=== PATIENT | female | born 1970 | race Hispanic/Latino ===

== ENCOUNTER → 2018-11-20 | Outpatient (CLI) | payer OTHER ==
--- NOTE | 2018-11-20 17:44 | Diagnostic Imaging Report ---
Frontal and lateral views of the chest. HISTORY: Dyspnea COMPARISON: None available. DISCUSSION: Lungs: Mild prominence of the peribronchial interstitial markings. No evidence of a consolidative pneumonia or pulmonary alveolar edema. Pleura: No pleural effusion or pneumothorax. Heart and mediastinum: The cardiomediastinal silhouette appears unremarkable. Bones and soft tissues: Appear unremarkable. IMPRESSION: 1. Findings which can be seen in the setting of a nonspecific bronchitis. 2. No consolidative pneumonia. Signed by: Dr. Salvador Ibanez D.O., M.M.M. on 11/20/2018 5:41 PM
== END ==
LOC: RAD 16:55
PROVIDERS: ATTEND Family Medicine
DX: R06.00 Dyspnea, unspecified (principal)
CPT/HCPCS: 71046

== ENCOUNTER → 2019-06-11 | Outpatient (CLI) | payer OTHER ==
--- NOTE | 2019-07-03 09:29 | Diagnostic Imaging Report ---
#[id number] - [id number] #BILATERAL DIGITAL SCREENING MAMMOGRAM WITH CAD: 06/11/2019 CLINICAL: Routine screening. No prior exams were available for comparison. Current study contains 7 films. There are scattered fibroglandular elements in both breasts. Current study was also evaluated with a Computer Aided Detection (CAD) system. There is a focal asymmetry in the left breast at 1 o'clock posterior depth. No other significant masses, calcifications, or other findings are seen in either breast. IMPRESSION: INCOMPLETE: NEEDS ADDITIONAL IMAGING EVALUATION The focal asymmetry in the left breast is indeterminate. Mediolateral and compression views as well as a possible ultrasound are recommended. The patient will be contacted by the Mammography Department to schedule this appointment. MARCELINO WINTERS M.D. ct/penrad:06/29/2019 09:23:18 Hammer Driver: Geni BOATENG(R)(Nyla), [facility] letter sent: Additional Imaging Needed Mammogram BI-RADS: 0 Indeterminate
== END ==
LOC: MAMMO 10:45
PROVIDERS: ATTEND Family Medicine
DX: Z12.31 Encounter for screening mammogram for malignant neoplasm of breast (principal)
CPT/HCPCS: 77067

== ENCOUNTER → 2019-07-27 | Outpatient (CLI) | payer OTHER ==
--- NOTE | 2019-07-30 09:10 | Diagnostic Imaging Report ---
#[id number] - USBRELIMLT ULTRASOUND OF THE LEFT BREAST : 07/27/2019 Comparison is made to exams dated: 07/27/2019 mammogram and 06/11/2019 mammogram - [facility]. Real-time ultrasound was performed on the left breast. There is a benign 9 mm oval cyst with a smooth internal wall in the left breast at 3 o'clock posterior depth. This oval cyst is anechoic. This correlates with mammography findings. IMPRESSION: BENIGN There is no sonographic evidence of malignancy. The 9 mm oval cyst in the left breast is benign. A 1 year screening mammogram is recommended. MARCELINO WINTERS M.D. ct/penrad:07/27/2019 16:29:37 Internal Communications Writer: LANIE WOODWARD RDME, [facility] letter sent: Normal Exam Ultrasound BI-RADS: 2 Benign
--- NOTE | 2019-07-30 09:10 | Diagnostic Imaging Report ---
#[id number] - MGDXLT #UNILATERAL LEFT DIGITAL DIAGNOSTIC MAMMOGRAM WITH SPOT COMPRESSION: 07/27/2019 Comparison is made to exam dated: 06/11/2019 mammogram - [facility]. Current study contains 3 films. There are scattered fibroglandular elements in the left breast. There is a benign 9 mm oval cyst in the left breast at 3 o'clock middle depth. This is seen in additional views. This correlates with ultrasound findings. No other significant masses or calcifications are seen in the breast. IMPRESSION: BENIGN See the report for ultrasound performed the same day for additional details. There is no mammographic evidence of malignancy. A 1 year screening mammogram is recommended. The patient will be notified by letter of the results. MARCELINO WINTERS M.D. ct/penrad:07/27/2019 16:28:48 Billiard Player: Geni ALVARADO)(Nyla), [facility] letter sent: Normal Exam Mammogram BI-RADS: 2 Benign
== END ==
LOC: MAMMO 12:49
PROVIDERS: ATTEND Family Medicine
DX: N64.89 Other specified disorders of breast (principal)

== ENCOUNTER → 2020-01-16 | Outpatient (CLI) | payer OTHER ==
--- NOTE | 2020-01-16 11:30 | Diagnostic Imaging Report ---
EXAM: CT Abdomen and Pelvis WITHOUT intravenous contrast INDICATION: Renal calculus COMPARISON: Abdominal ultrasound 11/15/2019 TECHNIQUE: Abdomen and pelvis were scanned utilizing a multidetector helical scanner from the lung base to the pubic symphysis without administration of IV contrast. Coronal and sagittal reformations were obtained. IV CONTRAST: None ORAL CONTRAST: Water COMPLICATIONS: None RADIATION DOSE: Total DLP: 790 mGy*cm Dose modulation, iterative reconstruction, and/or weight based adjustment of the mA/kV was utilized to reduce the radiation dose to as low as reasonably achievable. FINDINGS: LOWER THORAX: Normal. HEPATOBILIARY: Hepatomegaly. Severe diffuse hepatic steatosis. No focal liver lesion. No biliary ductal dilation. The gallbladder appears unremarkable. SPLEEN: No splenomegaly. PANCREAS: No focal masses or ductal dilatation. ADRENALS: No adrenal nodules. KIDNEYS/URETERS: No hydronephrosis, stones, or solid mass lesions. PELVIC ORGANS/BLADDER: Unremarkable. PERITONEUM / RETROPERITONEUM: No free air or fluid. LYMPH NODES: No lymphadenopathy. VESSELS: Minimal aortic atherosclerotic calcification. GI TRACT: Normal bowel thickening. No bowel obstruction. Normal appendix. BONES AND SOFT TISSUES: No acute osseous injury. No suspicious lytic or blastic lesions. IMPRESSION: No renal calculi or hydronephrosis. Hepatomegaly and severe diffuse hepatic steatosis. Signed by: Singh Sheldon MD on 01/16/2020 11:26 AM
== END ==
LOC: CT 10:24
PROVIDERS: ATTEND Family Medicine
DX: N20.0 Calculus of kidney (principal)
CPT/HCPCS: 74176

== ENCOUNTER 2020-07-07 20:16 | Emergency (ER) | payer OTHER ==
[~2020-07-07] VITALS: Ht 160 cm; Wt 88.9 kg
[2020-07-07 20:40] LABS: BASOPHILS % 0.3 % (0.0-1.0); EOSINOPHILS # (AUTO) 0.1 (0.0-0.4); EOSINOPHILS % 0.9 % (0.0-6.0); HEMATOCRIT 38.3 % (34.2-44.1); HEMOGLOBIN 13.7 g/dL (12.0-16.0); LYMPHOCYTES # (AUTO) 1.4 (1.0-3.2); LYMPHOCYTES % 20.6 % (18.0-39.1); MEAN CORPUSCULAR HEMOGLOBIN 29.1 pg (28-32); MEAN CORPUSCULAR HGB CONC 35.8 g/dL (31-35); MEAN CORPUSCULAR VOLUME 81.5 fL (81-99); MONOCYTES # (AUTO) 0.4 (0.2-0.8); MONOCYTES % 6.4 % (4.4-11.3); NEUTROPHILS # (AUTO) 4.9 (2.1-6.9); NEUTROPHILS % 71.5 % (38.7-80.0); PLATELET COUNT 283 x10e3/uL (140-360); RED CELL DISTRIBUTION WIDTH 11.7 % (11.7-14.4)
[2020-07-07 20:52] LABS: BILIRUBIN,URINE NEGATIVE (NEGATIVE); CLARITY,URINE CLEAR (CLEAR); COLOR,URINE YELLOW (YELLOW); KETONES,URINE TRACE (NEGATIVE); LEUKOCYTE ESTERASE ,URINE NEGATIVE (NEGATIVE); NITRITE,URINE NEGATIVE (NEGATIVE); PROTEIN,URINE DIPSTICK NEGATIVE (NEGATIVE); URINE UROBILINOGEN 0.2 mg/dL (0.2 - 1)
--- NOTE | 2020-07-07 20:54 | Emergency Department Note ---
History of Present Illnes History of Present Illness Chief Complaint: Abdominal Complaints History of Present Illness This is a 50 year old female c/o lower abdominal pain that started today after having her gallbladder taken out on 07/04/20 . WHEN ASKED EXACTLY WHERE HER PAIN IS SHE POINTS TO INCISION SITE AT UMBILICUS AND UPPER ABD, DENIES N/V/D Historian: Patient Arrival Mode: Car Onset (how long ago): hour(s) (12) Location: ABD Quality: PAIN Radiation: Reports non-radiation Severity: mild Onset quality: gradual Timing of current episode: constant Progression: unchanged Chronicity: recurrent Context: Reports recent surgery (GALLBLADDER REMOVED ON 07/04/20) Relieving factors: none Exacerbating factors: movement Associated symptoms: Reports denies other symptoms Treatments prior to arrival: none Past Medical/Family History Physician Review I have reviewed the patient's past medical and family history. Any updates have been documented here. Past Medical History Recent Fever: No Clinical Suspicion of Infectio: No New/Unexplained Change in Ment: No Past Medical History: Hypertension, Hyperlipedemia Past Surgical History: Cholecysctectomy Social History Smoking Cessation: Never Smoker Alcohol Use: None Any Illegal Drug Use: No Family History Family history of heart diseas: No Review of Systems Review of Systems Constitutional: Reports no symptoms EENTM: Reports no symptoms Cardiovascular: Reports no symptoms Respiratory: Reports no symptoms Gastrointestinal: Reports as per HPI Genitourinary: Reports no symptoms Musculoskeletal: Reports no symptoms Integumentary: Reports no symptoms Neurological: Reports no symptoms Psychological: Reports no symptoms Endocrine: Reports no symptoms Hematological/Lymphatic: Reports no symptoms Physical Exam Related Data Allergies: Coded Allergies: No Known Allergies (Unverified , 07/07/20) Triage Vital Signs Vital Signs Date Time Temp Pulse Resp B/P (MAP) Pulse Ox O2 Delivery O2 Flow Rate FiO2 07/07/20 20:23 99.7 84 20 127/70 98 Room Air Vital signs reviewed: Yes Physical Exam CONSTITUTIONAL Constitutional: Present well-developed, Present well-nourished HENT HENT: Present normocephalic, Present atraumatic, Present oropharynx clear/moist, Present nose normal HENT L/R: Present left ext ear normal, Present right ext ear normal EYES Eyes: Reports PERRL, Reports conjunctivae normal NECK Neck: Present ROM normal PULMONARY Pulmonary: Present effort normal, Present breath sounds normal CARDIOVASCULAR Cardiovascular: Present regular rhythm, Present heart sounds normal, Present capillary refill normal, Present normal rate GASTROINTESTINAL Abdominal: Present soft, Present nontender, Present bowel sounds normal, Present tender (MILD AT TROCHAR INCISION SITES FROM SURGERY, NO SIGNS OF INFECTIONS, WOUNDS C/D/I) GENITOURINARY Genitourinary: Present exam deferred SKIN Skin: Present warm, Present dry MUSCULOSKELETAL Musculoskeletal: Present ROM normal NEUROLOGICAL Neurological: Present alert, Present oriented x 3, Present no gross motor or sensory deficits PSYCHOLOGICAL Psychological: Present mood/affect normal, Present judgement normal Results Laboratory Result Diagram: 07/07/202036 Laboratory Laboratory Tests Test 07/07/20 20:37 07/07/20 20:30 White Blood Count 6.89 x10e3/uL (4.8-10.8) Red Blood Count 4.70 x10e6/uL (3.6-5.1) Hemoglobin 13.7 g/dL (12.0-16.0) Hematocrit 38.3 % (34.2-44.1) Mean Corpuscular Volume 81.5 fL (81-99) Mean Corpuscular Hemoglobin 29.1 pg (28-32) Mean Corpuscular Hemoglobin Concent 35.8 g/dL (31-35) Red Cell Distribution Width 11.7 % (11.7-14.4) Platelet Count 283 x10e3/uL (140-360) Neutrophils (%) (Auto) 71.5 % (38.7-80.0) Lymphocytes (%) (Auto) 20.6 % (18.0-39.1) Monocytes (%) (Auto) 6.4 % (4.4-11.3) Eosinophils (%) (Auto) 0.9 % (0.0-6.0) Basophils (%) (Auto) 0.3 % (0.0-1.0) Neutrophils # (Auto) 4.9 (2.1-6.9) Lymphocytes # (Auto) 1.4 (1.0-3.2) Monocytes # (Auto) 0.4 (0.2-0.8) Eosinophils # (Auto) 0.1 (0.0-0.4) Basophils # (Auto) 0.0 (0.0-0.1) Absolute Immature Granulocyte (auto 0.02 x10e3/uL (0-0.1) Sodium Level 131 mmol/L (136-145) Potassium Level 3.7 mmol/L (3.5-5.1) Chloride Level 98 mmol/L (98-107) Carbon Dioxide Level 19 mmol/L (22-29) Anion Gap 17.7 mmol/L (8-16) Blood Urea Nitrogen 13 mg/dL (7-26) Creatinine 0.86 mg/dL (0.57-1.11) Estimat Glomerular Filtration Rate > 60 ML/MIN (60-) BUN/Creatinine Ratio 15 (6-25) Glucose Level 93 mg/dL (74-118) Calcium Level 9.3 mg/dL (8.4-10.2) Total Bilirubin 0.9 mg/dL (0.2-1.2) Aspartate Amino Transf (AST/SGOT) 68 IU/L (5-34) Alanine Aminotransferase (ALT/SGPT) 149 IU/L (0-55) Alkaline Phosphatase 77 IU/L (40-150) Total Protein 7.6 g/dL (6.5-8.1) Albumin 4.4 g/dL (3.5-5.0) Globulin 3.2 g/dL (2.3-3.5) Albumin/Globulin Ratio 1.4 (0.8-2.0) Amylase Level 37 U/L (25-125) Lipase 16 U/L (8-78) Urine Color Yellow (YELLOW) Urine Clarity Clear (CLEAR) Urine pH 6 (5 - 7) Urine Specific [place] 1.010 (1.010-1.025) Urine Protein Negative (NEGATIVE) Urine Glucose (UA) Negative (NEGATIVE) Urine Ketones Trace (NEGATIVE) Urine Blood Trace (NEGATIVE) Urine Nitrite Negative (NEGATIVE) Urine Bilirubin Negative (NEGATIVE) Urine Urobilinogen 0.2 mg/dL (0.2 - 1) Urine Leukocyte Esterase Negative (NEGATIVE) Urine RBC 0-5 /HPF (0-5) Urine WBC None /HPF (0-5) Urine Epithelial Cells None /LPF (NONE) Urine Bacteria Rare /HPF (NONE) Laboratory Tests Test 07/07/20 20:37 07/07/20 20:30 White Blood Count 6.89 x10e3/uL (4.8-10.8) Red Blood Count 4.70 x10e6/uL (3.6-5.1) Hemoglobin 13.7 g/dL (12.0-16.0) Hematocrit 38.3 % (34.2-44.1) Mean Corpuscular Volume 81.5 fL (81-99) Mean Corpuscular Hemoglobin 29.1 pg (28-32) Mean Corpuscular Hemoglobin Concent 35.8 g/dL (31-35) Red Cell Distribution Width 11.7 % (11.7-14.4) Platelet Count 283 x10e3/uL (140-360) Neutrophils (%) (Auto) 71.5 % (38.7-80.0) Lymphocytes (%) (Auto) 20.6 % (18.0-39.1) Monocytes (%) (Auto) 6.4 % (4.4-11.3) Eosinophils (%) (Auto) 0.9 % (0.0-6.0) Basophils (%) (Auto) 0.3 % (0.0-1.0) Neutrophils # (Auto) 4.9 (2.1-6.9) Lymphocytes # (Auto) 1.4 (1.0-3.2) Monocytes # (Auto) 0.4 (0.2-0.8) Eosinophils # (Auto) 0.1 (0.0-0.4) Basophils # (Auto) 0.0 (0.0-0.1) Absolute Immature Granulocyte (auto 0.02 x10e3/uL (0-0.1) Lab results reviewed: Yes Assessment & Plan Medical Decision Making MDM PT WITH ABD PAIN S/P CHOLECYSTECTOMY 07/04/20 CBC, CMP, AMYLASE, LIPASE, UA ORDERED TO EVAL FOR PANCREATITIS, UTI, ELEVATED LFT'S, Assessment & Plan Final Impression: (1) Post-op pain Depart Disposition: HOME, SELF-CARE Last Vital Signs Date Time Temp Pulse Resp B/P (MAP) Pulse Ox O2 Delivery O2 Flow Rate FiO2 07/07/20 20:23 99.7 84 20 127/70 98 Room Air LUKE PETER MD Jul 07, 2020 20:54
[2020-07-07 20:56] LABS: ALANINE AMINOTRANSFERASE 149 IU/L (0-55); ALBUMIN 4.4 g/dL (3.5-5.0); ALBUMIN/GLOBULIN RATIO 1.4 (0.8-2.0); ALKALINE PHOSPHATASE 77 IU/L (40-150); ANION GAP 17.7 mmol/L (8-16); BLOOD UREA NITROGEN 13 mg/dL (7-26); BUN/CREATININE RATIO 15 (6-25); CALCIUM 9.3 mg/dL (8.4-10.2); CARBON DIOXIDE 19 mmol/L (22-29); CHLORIDE 98 mmol/L (98-107); CREATININE, SERUM 0.86 mg/dL (0.57-1.11); EST GLOMERULAR FILTRATION RATE > 60 ML/MIN (60-); GLUCOSE 93 mg/dL (74-118); POTASSIUM 3.7 mmol/L (3.5-5.1); SODIUM 131 mmol/L (136-145)
[2020-07-07 21:05] LABS: AMYLASE 37 U/L (25-125); LIPASE 16 U/L (8-78)
[2020-07-07 21:11] LABS: BACTERIA,URINE RARE /HPF; RBC,URINE 0-5 /HPF (0-5)
--- OUTSIDE RECORDS SUMMARY | 2020-07-07 22:23 | XMS REPORT | Continuity of Care Document ---
Author Author [facility] t Organization [facility] Address [address] Spann [address] [place] [phone] Phone Unavailable Care Team Providers Care Nurse'S Companion Name Role Phone DARREL, CAROLE Attphys Unavailable Payers Payer Name Policy Type Policy Number Effective Date Expiration Date S ource Problems Condition Name Condition Details Condition Category Status Onset Date Resolution Date Last Treatment Date Treating Clinician Comments Source Biliary colic Biliary Colic Problem Active 2020-03-27 00:00:00 [facility] Disorder of gallbladder Disorder of Gallbladder Problem Active 2020-03-17 00:00:00 [facility] Steatosis of liver Steatosis of Liver Problem Active 2019-11-22 00:00:0 0 [facility] Carpal tunnel syndrome Carpal Tunnel Syndrome Problem Active 2019-02-08 00:00:00 [facility] Hkygmyebfkf-jbtlzumowd-lfzbzi inhibitor adverse reacti on Eqpblmtrllb-upanfzoomw-zrmtmk Inhibitor Adverse Reaction Problem Act adis 2019-01-11 00:00:00 [facility] Rosacea Rosacea Problem Active 2018-04-13 00:00:00 [facility] Hyperlipidemia Hyperlipidemia Problem Active 2017-12-08 00:00:00 [facility] Benign essential hypertension Benign Essential Hypertension Problem Active 2017-12-08 00:00:00 [facility] Allergies, Adverse Reactions, Alerts Allergy Name Allergy Type Status Severity Reaction(s) Onset Date Inacti ve Date Treating Clinician Comments Source Metronidazole Allergy to substance Active Moderate Facial swelling [facility] Lisinopril Allergy to substance Active Mild to moderate Cough [facility] Social History Smoking Status Start Date Stop Date Source Former Smoker [facility] ractice Medications Ordered Medication Name Filled Medication Name Start Date Stop Da te Current Medication? Ordering Clinician Indication Dosage Frequency Signature (SIG) Comments Components Source atorvastatin 20 mg tablet Take 1 tablet every day by o ral route. atorvastatin 20 mg tablet Take 1 tablet every day by oral route. No atorvastatin 20 mg tablet Take 1 tablet every day by oral route. [facility] diclofenac sodium 50 mg tablet,delayed r elease Take 1 tablet twice a day by oral route for 30 days. diclofenac sodium 50 mg tablet,delayed r elease Take 1 tablet twice a day by oral route for 30 days. No diclofenac sodium 50 mg tablet,delayed release Take 1 tablet twice a day by oral route for 30 days. [facility] hydrocodone 5 mg-acetaminophen 325 mg tablet hydrocodo ne 5 mg-acetaminophen 325 mg tablet No hydrocodone 5 mg-acetaminoph en 325 mg tablet [facility] ketorolac 10 mg tablet Take 1 tablet 6 times a day by oral route for 30 days. ketorolac 10 mg tablet Take 1 tablet 6 times a day by oral route for 30 days. No 1 6xD ketorolac 10 m g tablet Take 1 tablet 6 times a day by oral route for 30 days. [facility] ice methocarbamol 500 mg tablet Take 1 table t 4 times a day by oral route for 4 days. methocarbamol 500 mg tablet Take 1 table t 4 times a day by oral route for 4 days. No 1 QID methocarbamol 50 0 mg tablet Take 1 tablet 4 times a day by oral route for 4 days. [facility] metoprolol succinate ER 100 mg tablet,ex tended release 24 hr Take 1 tablet every day by oral route for 90 days. metoprolol succinate ER 100 mg tablet,ex tended release 24 hr Take 1 tablet every day by oral route for 90 days. No metoprolol succinate ER 100 mg tablet,extended release 24 hr Take 1 tablet every day by oral route for 90 days. [facility] olmesartan 20 mg tablet Take 1 tablet every day by ora l route for 90 days. olmesartan 20 mg tablet Take 1 tablet every day by oral route for 90 days. No olmesartan 20 m g tablet Take 1 tablet every day by oral route for 90 days. [facility] ice Soolantra 1 % topical cream APPLY A PEA- SIZED AMOUNT BY TOPICAL ROUTE ONCE DAILY TO COVER AREAS OF FACE WITH THIN LAYER AVOIDING THE EYES AND LIPS Soolantra 1 % topical cream APPLY A PEA-SIZED AMOUNT BY TOPICAL ROUTE ONCE DAILY TO COVER AREAS OF FACE WITH THIN LAYER AVOIDING THE EYES AND LIPS No Soolantra 1 % topical cream APPLY A PEA-SIZED AMOUNT BY TOPICAL ROUTE ONCE DAILY TO COVER AREAS OF FACE WITH THIN LAYER AVOIDING THE EYES AND LIPS [facility] triamterene 37.5 mg-hydrochlorothiazide 25 mg tablet Take 1 tablet every day by oral route for 90 days. triamterene 37.5 mg-hydrochlorothiazide 25 mg tablet Take 1 tablet every day by oral route for 90 days. No triamterene 37.5 mg-hydrochlorothiazide 25 mg tablet Take 1 tablet every day by oral route for [facility] days. [facility] Ordered Immunization Name Filled Immunization Name Date Status Comments Source influenza, injectable, quadrivalent, preservative free influenza, injectable, quadrivalent, preservative free 2019-11-07 12:15:00 Completed [facility] influenza, injectable, quadrivalent, preservative free influenza, injectable, quadrivalent, preservative free 2018-10-12 10:28:15 Completed [facility] influenza, unspecified formulation influenza, unspecified fo rmulation 2017-09-30 00:00:00 Completed [facility] renaldo Vital Signs Vital Name Observation Time Observation Value Comments Source BP Diastolic 2020-07-04 00:00:00 72 mm[Hg] [facility] Height 2020-07-04 00:00:00 62 [in_i] [facility] BMI (Body Mass Index) 2020-07-04 00:00:00 35.9 kg/m2 [facility] BP Systolic 2020-07-04 00:00:00 126 mm[Hg] [facility] Body Weight 2020-07-04 00:00:00 196.2 [lb_av] [facility] BP Diastolic 2020-06-30 00:00:00 72 mm[Hg] [facility] Height 2020-06-30 00:00:00 62 [in_i] [facility] BMI (Body Mass Index) 2020-06-30 00:00:00 37 kg/m2 [facility] BP Systolic 2020-06-30 00:00:00 128 mm[Hg] [facility] Body Weight 2020-06-30 00:00:00 202.2 [lb_av] [facility] BP Diastolic 2020-05-21 00:00:00 74 mm[Hg] [facility] Height 2020-05-21 00:00:00 62 [in_i] [facility] BMI (Body Mass Index) 2020-05-21 00:00:00 352.3 kg/m2 [facility] BP Systolic 2020-05-21 00:00:00 138 mm[Hg] [facility] Body Weight 2020-05-21 00:00:00 1926 [lb_av] [facility] BP Diastolic 2020-03-28 00:00:00 78 mm[Hg] [facility] Height 2020-03-28 00:00:00 62 [in_i] [facility] BMI (Body Mass Index) 2020-03-28 00:00:00 34.9 kg/m2 [facility] BP Systolic 2020-03-28 00:00:00 130 mm[Hg] [facility] Body Weight 2020-03-28 00:00:00 191 [lb_av] [facility] BP Diastolic 2019-12-28 00:00:00 70 mm[Hg] [facility] Height 2019-12-28 00:00:00 62 [in_i] [facility] BMI (Body Mass Index) 2019-12-28 00:00:00 35.5 kg/m2 [facility] BP Systolic 2019-12-28 00:00:00 126 mm[Hg] [facility] Body Weight 2019-12-28 00:00:00 194 [lb_av] [facility] BP Diastolic 2019-11-07 00:00:00 92 mm[Hg] [facility] Height 2019-11-07 00:00:00 62 [in_i] [facility] BMI (Body Mass Index) 2019-11-07 00:00:00 34.6 kg/m2 [facility] BP Systolic 2019-11-07 00:00:00 146 mm[Hg] [facility] Body Weight 2019-11-07 00:00:00 189 [lb_av] [facility] BP Diastolic 2019-02-08 00:00:00 72 mm[Hg] [facility] Height 2019-02-08 00:00:00 62 [in_i] [facility] BMI (Body Mass Index) 2019-02-08 00:00:00 33.8 kg/m2 [facility] BP Systolic 2019-02-08 00:00:00 114 mm[Hg] [facility] Body Weight 2019-02-08 00:00:00 185 [lb_av] [facility] BP Diastolic 2019-01-11 00:00:00 88 mm[Hg] [facility] Height 2019-01-11 00:00:00 62 [in_i] [facility] BMI (Body Mass Index) 2019-01-11 00:00:00 33.1 kg/m2 [facility] BP Systolic 2019-01-11 00:00:00 142 mm[Hg] [facility] Body Weight 2019-01-11 00:00:00 181 [lb_av] [facility] Height 2018-11-20 00:00:00 62 [in_i] [facility] BMI (Body Mass Index) 2018-11-20 00:00:00 32.7 kg/m2 [facility] Body Weight 2018-11-20 00:00:00 179 [lb_av] [facility] Procedures Procedure Date / Time Performed Performing Clinician Sourc e Cholecystectomy 2020-07-03 00:00:00 [facility] ly [facility] MAMMO, screening, bilateral 2020-06-23 00:00:00 [facility] X-RAY OF ELBOW 2 VIEW 2020-03-28 00:00:00 [facility] electrocardiogram 2020-03-28 00:00:[address] [facility] [address], abdomen + pelvis, w/o contrast 2019-12-28 00:00:00 [facility] US, abdomen, complete 2019-11-07 00:00:00 [facility] X-RAY OF CHEST 2 VIEW 2018-11-20 00:00:00 [facility] Tubal Ligation [facility] ractice Delivery [facility] Plan of Care Planned Activity Planned Date Details Comments Source Future Appointment 2020-08-20 11:00:00 Carole Rojo Jr [address], [place] [address] [facility] Encounters Start Date/Time End Date/Time Encounter Type Admission Type Attendi [facility] Facility Care Department Encounter ID Source 2020-07-04 00:00:00 2020-07-04 00:00:00 Carole Rojo Jr, MD: [address], [address], [place] [address], Ph. [facility] - _[facility] [id number] [facility] 2020-06-30 00:00:00 2020-06-30 00:00:00 Carole Rojo Jr, MD: [address], [address], [place] [address], Ph. [facility] - VM_HOU_Hobby [id number] [facility] 2020-06-25 00:00:00 2020-06-25 00:00:00 aCrole Rojo Jr, MD: [address], [address], [place] [address], Ph. [facility] - VM_HOU_Hobby [id number] [facility] 2020-06-23 00:00:00 2020-06-23 00:00:00 Carole Rojo Jr, MD: [address], [place] [address], Ph. [facility] - VM_HOU_Hobby [id number] [facility] 2020-05-21 00:00:00 2020-05-21 00:00:00 Carole Rojo Jr, MD: [address], [place] [address], Ph. [facility] - VM_HOU_Hobby [id number] [facility] 2020-03-28 00:00:00 2020-03-28 00:00:00 Carole Rojo Jr, MD: [address], [place] [address], Ph. [facility] - VM_HOU_Hobby [id number] [facility] 2019-12-28 00:00:00 2019-12-28 00:00:00 Carole Rojo Jr, MD: [address], [place] [address], Ph. [facility] - VM_HOU_Hobby [id number] [facility] 2019-11-07 00:00:00 2019-11-07 00:00:00 Carole Rojo Jr, MD: [address], [place] [address], Ph. [facility] - VM_HOU_Hobby [id number] [facility] 2019-02-08 00:00:00 2019-02-08 00:00:00 Carole Rojo Jr, MD: [address], [place] [address], [facility] [id number] [facility] 2019-01-11 00:00:00 2019-01-11 00:00:00 Carole Rojo Jr, MD: [address], [place] [address], Ph. [facility] [id number] [facility] 2018-11-20 00:00:00 2018-11-20 00:00:00 Carole Rojo Jr, MD: [address], [place] [address], Ph. [facility] [id number] [facility] Results Test Description Test Time Test Comments Results Result Comments Source Bacteria identified in Urine by Culture 2020-07-01 22:09:00 Test Item culture, urine, routine (test code = culture, urine, routine) see ernst Metcalf [facility] (dipstick) panel - [id number] 16:24:00* Test Item Value Reference Range Interpretation Comments Color Color (test code = Color Color) light yellow Color Appearance (test code = Color Appearance) clear Color Glucose (test code = Color Glucose) negative Color Bilirubin (test code = Color Bilirubin) negative Color Ketones (test code = Color Ketones) negative Color Specific [place] (test code = Color Specific [place]) 1.025 Color Blood (test code = Color Blood) negative Color PH (test code = Color PH) 6.5 Color Protein (test code = Color Protein) negative Color Urobilinogen (test code = Color Urobilinogen) 0.2 Color Nitrites (test code = Color Nitrites) negative Color Leukocytes (test code = Color Leukocytes) negative [facility] [id number] 11:20:00 [facility] [address] [address] Patient Name: ONIEL ALVAREZ MR #: [id number] : 1970 Age/Sex: 49/F Req #: [id number] Adm Physician: Ordered by: CAROLE ROJO JR., M.D. Report #: [id number] Location: CT Room/Bed: Procedure: 0318-[address]/CT ABDOMEN/PELVIS WO Exam Date: 01/16/20 Exam Time: 1054 REPORT STATUS: Signed EXAM: CT Abdomen and Pelvis WITHOUT intravenous contrast INDICATION: Re nal calculus COMPARISON: Abdominal ultrasound 11/15/2019 TECHNIQUE: Abd omen and pelvis were scanned utilizing a multidetector helical scanner from th e lung base to the pubic symphysis without administration of IV contrast. Yovanny nal and sagittal reformations were obtained. IV CONTRAST: None ORAL CONTRAST: Water COMPLICATIONS: None RADIATION DOSE: Tot al DLP: 790 mGy*cm Dose modulation, iterative reconstruction, and/or weigh t based adjustment of the mA/kV was utilized to reduce the radiation dose to a s low as reasonably achievable. FINDINGS: LOWER THORAX: Normal. H EPATOBILIARY: Hepatomegaly. Severe diffuse hepatic steatosis. No focal liver l esion. No biliary ductal dilation. The gallbladder appears unremarkable. SP DELGADO: No splenomegaly. PANCREAS: No focal masses or ductal dilatation. ADRENALS: No adrenal nodules. KIDNEYS/URETERS: No hydronephrosis, stones, or solid mass lesions. PELVIC ORGANS/BLADDER: Unremarkable. PERITONEUM / RET ROPERITONEUM: No free air or fluid. LYMPH NODES: No lymphadenopathy. VESSELS : Minimal aortic atherosclerotic calcification. GI TRACT: Normal bowel thic kening. No bowel obstruction. Normal appendix. BONES AND SOFT TISSUES: No a cute osseous injury. No suspicious lytic or blastic lesions. IMPRESSION: No renal calculi or hydronephrosis. Hepatomegaly and severe diffuse hepa tic steatosis. Signed by: Joel Campos MD on 01/16/2020 11:26 AM Di ctated By: JOEL CAMPOS MD 11 26 Transcribed By: DOLORES on 01/16/20 1126 COPY TO: JALEESA ROJO JR., M.D. - HEPA IMAG INCL GB W [id number] 07:20:00 FAX: Carole Castillo Jr [phone] [facility] [place]: St: [facility] FAX: Brady Brody [phone] Name: ONIEL ALVAREZ [facility] : 1970 Age/S: 49/F [address] [facility] Unit #: [id number] Loc: [place] [address] Phys: Brady Bradford MD Acct: [id number] Dis Date: [facility] #: [phone] Exam Date: 12/31/2019 1330 FAX #: [phone] Reason: 789.01,R10.11,401.9,I 10,E66.9 EXAMS: CPT CODE: [id number] HEPA IMAG INCL GB W PHA 44688 HISTORY: R10.11 EXAM: NUCLEAR MEDICINE HEPATOBILI BRANDEN SCAN WITH GB EJECTION FRACTION. TECHNIQUE: After IV injection of 5.5 mCi Tc 99m Choletec, sequential planar images were obtained over th e upper abdomen out to 60 minutes. 1.4 micrograms of IV CCK was then given with continued imaging for 30 minutes for calculation of gallbladder ejec tion fraction. FINDINGS: Homogeneous distribution of radiopharmac eutical in the liver. Normal accumulation of radiopharmaceutical in the ga llbladder by 15 minutes. No accumulation of radiopharmaceutical in small b owel by 60 minutes. After the IV administration of Kinevac, calculated gallbladder ejection fraction is 6%. Faint small bowel activity observed after administration of CCK. IMPRESSION: 1. No evidence of acute cholecystitis or biliary obstruction. 2. Abnormally depressed gallbladder ejection fraction. Delayed biliary to bowel transit. Consider chronic cholecystitis or biliary dysfunctio n. LOCATION: LP at 0720 Reported and signed by: Sharon Yu D.O. CC: Carole Rojo Jr, MD; Brady Bradford MD Technologist: Honey Zapata RT(N) Trnscrd Date/Time/By: 01/01/2020 (719) : By: Mirna [email or web address] Orig Print D/T: S: 01/01/2020 (0723) PAG E 1 Signed Report Urinalysis macro (dipstick) panel - [id number] 13:26:00* Test Item Value Reference Range Interpretation Comments Color Color (test code = Color Color) light yellow Color Appearance (test code = Color Appearance) clear Color Glucose (test code = Color Glucose) negative Color Bilirubin (test code = Color Bilirubin) negative Color Ketones (test code = Color Ketones) negative Color Specific [place] (test code = Color Specific [place]) 1.010 Color Blood (test code = Color Blood) moderate Color PH (test code = Color PH) 6.0 Color Protein (test code = Color Protein) 30 Color Urobilinogen (test code = Color Urobilinogen) 0.2 Color Nitrites (test code = Color Nitrites) negative Color Leukocytes (test code = Color Leukocytes) negative [facility] PracticeUrinalysis macro (dipstick) panel - [id number] 13:25:00* Test Item Value Reference Range Interpretation Comments Color Color (test code = Color Color) light yellow Color Appearance (test code = Color Appearance) clear Color Glucose (test code = Color Glucose) negative Color Bilirubin (test code = Color Bilirubin) negative Color Ketones (test code = Color Ketones) negative Color Specific [place] (test code = Color Specific [place]) 1.025 Color Blood (test code = Color Blood) large Color PH (test code = Color PH) 6.0 Color Protein (test code = Color Protein) 100 Color Urobilinogen (test code = Color Urobilinogen) 0.2 Color Nitrites (test code = Color Nitrites) negative Color Leukocytes (test code = Color Leukocytes) negative [facility] PracticeUS ABDOMEN [id number] 10:53:[address] [address] Patient Name: ONIEL ALVAREZ MR #: [id number] : 1970 Age/Sex: 49/F Req #: [id number] Adm Physician: Ordered by: CAROLE ROJO JR., M.D. Report #: [id number] Location: Room/Bed: Procedure: 0116-0 011 US/US ABDOMEN COMPLETE Exam Date: 11/15/19 Exam Time: 1036 REPORT STATUS: Signed Abdominal ultrasound. History: Abdominal pain. Comparison: None available. Discussion: Transverse and longitudinal images of the abdomen w ere obtained demonstrating a liver of normal size but diffusely increased echo genicity measuring 16 cm in length. There is no focal hepatic abnormality. The portal vein is patent with hepatopetal flow and is within normal limits measu ring 10 mm in diameter. The biliary tree is within normal sheppard its with the common bile duct measuring for mm in diameter. The gallbladder is normal without evidence of stones, wall thickening, or pericholecystic fluid. The sonographic Del Angel's sign was negative. The kidneys are n ormal in size and echogenicity bilaterally without evidence of hydronephrosis, stones, or mass. The right kidney measures 9.6 cm and the left kidney measure s 9.9 cm in length. The spleen is normal in size and appearance measuring 10.8 cm in length. The pancreatic head and body are visualized and are normal in appearance. The abdominal aorta and IVC are within normal limits. There i s no evidence of free fluid. IMPRESSION: Diffuse fatty infiltration of the liver. Otherwise unremarkable abdominal ultrasound. Signed by: Wilfredo Lovett on 11/15/2019 10:54 AM Dictated By: MARCELINO Gonzalez icallkal Signed By: MARCELINO LOVETT MD on 11/15/191053 Transcribed By: DOLORES on 11/15/191053 COPY TO: CAROLE ROJO JR., M.D. US BREAST LIMITED [id number] 13:46:[address] [address] Patient Name: ONIEL ALVAREZ MR #: [id number] : 1970 Age/Sex: 49/F Req #: [id number] Adm Physician: Ordered by: CAROLE ROJO JR., M.D. Report #: [id number] Location: MAMMO Room/Bed: Procedure: 0927-0 012 US/US BREAST LIMITED LEFT Exam Date: Exam Time: REPORT STATUS: Signed #[id number] - USBRELIMLT ULTRASOUND OF THE LEFT BREAST : 07/27/2019 Comparison is made to exams dated: 07/27/2019 mammogram and 06/11/2019 mammogram - [facility]. Real-time ultrasound was performed on the left breast. There is a benign 9 mm oval cyst with a smooth internal wall in the left breast at 3 o'clock posterior depth. This oval cyst is anechoic. This correlates with mammography findings. IMPRESSION: BENIGN There is no sonographic evidence of malignancy. The 9 mm oval cyst in the left breast is benign. A 1 year screening mammogram is recommended. MARCELINO LOVETT M.D. ct/anisha:07/27/2019 16:29:37 Freight Delivery Driver: LANIE FLANAGAN, [facility] letter sent: Normal Exam Ultrasoun d BI-RADS: 2 Benign Dictated By: MARCELINO LOVETT MD 28 Transcribed By: ANISHA on 07/27/191628 COPY TO: CAROLE ROJO JR., M.D. MAMMOGRAPHY DIGITAL DX UNI LT 2019-07-27 13:27:[address] [address] Patient Name: ONIEL ALVAREZ MR #: [id number] : 1970 Age/Sex: 49/F Req #: [id number] Adm Physician: Ordered by: CAROLE ROJO JR., M.D. Report #: [id number] Location: MAMMO Room/Bed: Procedure: 0927-0 003 MG/MAMMOGRAPHY DIGITAL DX UNI LT Exam Date: 07/27/19 Exam Time: 1300 REPORT STATUS: Signed #[id number] - MGDXLT #UNILATERAL LEFT DIGITAL DIAGNOSTIC MAMM OGRAM WITH SPOT COMPRESSION: 07/27/2019 Comparison is made to exam dated: 06/11 mammogram - [facility]. Current study contains 3 films. There are scattered fibroglandular elements in the left breast. There is a benign 9 mm oval cyst in the left breast at 3 o'clock middle depth. This is seen in additional views. This correlates with ultrasound findings . No other significant masses or calcifications are seen in the breast. IMPRESSION: BENIGN See the report for ultrasound performed the same day for additional details. There is no mammographic evidence of malignancy. A 1 y ear screening mammogram is recommended. The patient will be notified by negrita hardin of the results. MARCELINO LOVETT M.D. ct/anisha:07/27/2019 1 6:28:48 Freight Delivery Driver: Geni REAL (R)), [facility] letter sent: Normal Exam Mammogram BI-RADS: 2 Benign Dictated By: MARCELINO LOVETT MD 27 COPY TO: CAROLE ROJO JR., M.D. MAMMOGRAPHY DIGITAL SCR [id number] 11:30:[address] [address] Patient Name: ONIEL ALVAREZ MR #: [id number] : 1970 Age/Sex: 49/F Req #: [id number] [facility] Physician: Ordered by: CAROLE ROJO JR., M.D. Report #: [id number] Location: MAMMO Room/Bed: Procedure: 0812-0 004 MG/MAMMOGRAPHY DIGITAL SCR BILAT Exam Date: 06/11/19 Exam Time: 1100 REPORT STATUS: Signed #[id number] - [id number] #BILATERAL DIGITAL SCREENING MAMMOGRAM WITH CAD: 06/11/2019 CLINICAL: Routine screening. No prior exams were a vailable for comparison. Current study contains 7 films. There are scattere d fibroglandular elements in both breasts. Current study was also evaluated with a Computer Aided Detection (CAD) system. There is a focal asymmetry in the left breast at 1 o'clock posterior depth. No other significant masses, c alcifications, or other findings are seen in either breast. IMPRESSION: I NCOMPLETE: NEEDS ADDITIONAL IMAGING EVALUATION The focal asymmetry in the left breast is indeterminate. Mediolateral and compression views as well as a po ssible ultrasound are recommended. The patient will be contacted by the M ammography Department to schedule this appointment. MARCELINO LOVETT M.D. ct/anisha:06/29/2019 09:23:18 Freight Delivery Driver: Geni ALVARADO)(Nyla), [facility] letter sent: Additional Torri ging Needed Mammogram BI-RADS: 0 Indeterminate Dictated By: MARCELINO Donnelly MD 2 Transcribed B y: ANISHA on 06/29/19922 COPY TO: CAROLE ROJO JR., M.D. CHEST 2 [id number] 17:32:00 [address] [address] Patient Name: ONIEL ALVAREZ MR #: [id number] : 1970 Age/Sex: 48/F Req #: [id number] [facility] Physician: Ordered by: CAROLE ROJO JR., M.D. Report #: [id number] Location: [facility] Room/Bed: Procedure: 0121-0 058 DX/CHEST 2 VIEWS Exam Date: 11/20/18 Exam Time: 1715 REPORT STATUS: Signed Front al and lateral views of the chest. HISTORY: Dyspnea COMPARISON: None av ailable. DISCUSSION: Lungs: Mild prominence of the peribro nchial interstitial markings. No evidence of a consolidative pneumonia or pu lmonary alveolar edema. Pleura: No pleural effusion or pneumothorax. Heart and mediastinum: The cardiomediastinal silhouette appears unremarka ble. Bones and soft tissues: Appear unremarkable. IMPRESSION: 1. Findings which can be seen in the setting of a nonspecific bronchitis. 2 . No consolidative pneumonia. Signed by: Dr. Salvador Joseph D.O., M.M.M. on 11/20/2018 5:41 PM Dictated By: SALVADOR JOSEPH DO 40 Transcribed By: DOLORSE on 11/20/181740 COPY TO: CAROLE ROJO JR., M.D.
== END 2020-07-07 21:45 | disposition home or self-care (01) ==
LOC: ER 20:35
DX: G89.18 Other acute postprocedural pain (principal); I10 Essential (primary) hypertension; E78.5 Hyperlipidemia, unspecified
CPT/HCPCS: 36415; 80053; 81001; 82150; 83690; 85025; 99283

== ENCOUNTER → 2020-07-28 | Outpatient (CLI) | payer OTHER | LOC: MAMMO 11:46 | PROVIDERS: ATTEND Family Medicine | DX: Z12.31 Encounter for screening mammogram for malignant neoplasm of breast (principal) | CPT/HCPCS: 77067 ==

== ENCOUNTER → 2021-07-21 | Outpatient (CLI) | payer OTHER | LOC: MAMMO 08:56 | PROVIDERS: ATTEND Family Medicine | DX: Z12.31 Encounter for screening mammogram for malignant neoplasm of breast (principal) | CPT/HCPCS: 77067 ==

== ENCOUNTER → 2022-07-28 | Outpatient (CLI) | payer OTHER | LOC: MAMMO 09:11 | PROVIDERS: ATTEND Family Medicine | DX: Z12.31 Encounter for screening mammogram for malignant neoplasm of breast (principal) | CPT/HCPCS: 77067 ==